=== PATIENT | female | born 1990 | race African-American/Black ===

== ENCOUNTER 2017-01-26 19:51 | Emergency (ER) | payer OTHER ==
[2017-01-26 20:13] VITALS: BP 92/61; BMI 21.9
[2017-01-26] MEDS ORDERED: ROCEPHIN VIAL 1 GM IM ONE (23:10)
[2017-01-26] MEDS ORDERED: MOTRIN TAB 800 MG PO STA (23:11)
--- NOTE | 2017-01-26 23:14 | DR.GENAD ---
HPI - PCP Primary Care Physician: NFD - Complaint/Symptoms Chief Complaint Doctors Comments: Patient complains of sore throat nasal congestion and problems loosing her voice for the past 24 hours. states she has had non productive cough but denies fever or chills. states she does not have a local doctor and her periods has been regular and she is on Depro Provera. States she has not had any thing for the pain. Chief Complaint:: " I have a sore throat and loosing my voice and a headache that just stated." - Nurses notes reviewed Nurses Notes Review: Yes - Source History Provided: Patient - Mode of Arrival Mode of Arrival: Ambulatory - Timing Onset of Chief Complaint: 01/26/17 Came on: Gradually - Duration Duration: Constant How lon Duration: Hours - Location Location: sore throat - Severity Severity: Moderate - Modifying Factors Worsens:: swallowing and coughing Improves:: nothing PMH - PMH Past Medical History: No Past Surgical History: No - Family History History of Family Medical Conditions: Yes Family Medical History: Diabetes Mellitus, Cancer, Coronary Artery Disease, Hypertension - Social History Alcohol Use: None Do you use any recreational Drugs:: No Lives With: Family Lives Where: Home - infectious screening Have you traveled outside the country in the last 6 months?: No ROS - Review of Systems Constitutional: No Symptoms Reported. negative: See HPI, Chills, Diaphoresis, Fever, Malaise, Weakness, Irritable, Fatigue, Loss of Appetite, Other Eyes: No Symptoms Reported ENTM: No Symptoms Reported, Nose Discharge, Nose Congestion, Throat Pain. negative: See HPI, Ear Pain, Ear Discharge, Pulling on Ears, Hearing Loss, Nose Pain, Epistaxis, Mouth Pain, Mouth Swelling, Loose Teeth, Drooling, Throat Swelling, Ear Foreign Body Respiratoy: No Symptoms Reported, Non-Productive Cough. negative: See HPI, Productive Cough, Moist Cough, Dry Cough, Hacking Cough, Barking Cough, Brassy Cough, Orthopnea, Short of Breath, Stridor, Wheezing, Hemoptysis, Other PE - Vital Signs Vitals: Temperature 99.3 F Pulse Rate 80 Respiratory Rate 18 Blood Pressure 92/61 O2 Sat by Pulse Oximetry 98 - General Limitations: No Limitations General Appearance: Alert, In No Apparent Distress - Head Head Exam: Normal Inspection, Atraumatic, Normocephalic - Eyes Eye exam: Normal Appearance, PERRL, EOMI. negative: Scleral Icterus, Conjunctival Injection, Nystagmus, Miosis, Mydrasis, Periorbital Swelling, Periorbital Tenderness, Other - ENT ENT Exam: Normal Exam, Normal Oropharynx, Normal External Ear Exam, Mucous Membranes Moist (nasal congestion with purulent nasal congestion bilaterally), TM's Normal Bilaterally External Ear Exam: Normal External Inspection TM/Canal Exam: Bilateral Normal Nose Exam: Normal Nose Exam, Sinus Tenderness (maxillary tenderness) Mouth Exam: Normal Inspection Throat Exam: Normal Inspection, Tonsillar Erythema - Neck Neck Exam: Normal Inspection, Full ROM, Trachea Midline - Chest Chest Inspection: Normal Inspection, Symmetric Chest Wall Rise - Respiratory Respiratory Exam: Normal Lung Sounds Bilat Respiratory Exam: Bilateral Clear to Auscultation - Cardiovascular Cardiovascular Exam: Regular Rate, Normal Rhythm, Normal Heart Sounds - Abdominal Exam Abdominal Exam: Normal Inspection, Normal Bowel Sounds, Soft Abdominal Tenderness: negative: RUQ, RLQ, LUQ, LLQ, Epigastrium, Suprapubic, Diffuse, Mild, Moderate, Severe, Other - Extremities Extremities Exam: Normal Inspection, Full ROM, Tenderness, Normal Capillary Refill - Back Back Exam: Normal Inspection, Full ROM. negative: Tenderness, (R) CVA Tenderness, (L) CVA Tenderness, Muscle Spasm, Paraspinal Tenderness, Vertebral Tenderness, Rashes, (R) Sciatic Notch Tenderness, (L) Sciatic Notch Tendern, (R ) Straight Leg Raise, (L) Straight Leg Raise, Other - Neurologic Neurological Exam: Alert, Oriented X3, CN II-XII Intact, Normal Gait, Reflexes Normal - Psychiatric Psychiatric Exam: Normal Affect, Normal Mood - Skin Skin Exam: Warm, Dry, Intact, Normal Color - Diagnosis Discharge Problem: Bronchitis Pharyngitis, acute Qualifiers: Pharyngitis/tonsillitis etiology: other specified organisms Qualified Code(s): J02.8 - Acute pharyngitis due to other specified organisms Sinusitis, acute Qualifiers: Sinusitis location: frontal - Discharge Plan Disposition: 01 HOME, SELF-CARE Condition: Stable Prescriptions: Amoxicillin & Pot Clavulanate [AUGMENTIN TAB 875 mg/125 mg *] 1 tab PO BID #20 tab Cetirizine HCl [Zyrtec Tab 10 mg] 10 mg PO DAILY #30 tab Fluticasone Nasal [place] [FLONASE NASAL SPRAY *] 2 sprays ENOSTRIL DAILY #1 each Ibuprofen [MOTRIN TAB 800 MG *] 800 mg PO BID PRN #60 tab PRN Reason: Pain/Inflammation - Follow ups/Referrals Follow ups/Referrals: NFD,None [Primary Care Provider] - 3 days - Instructions Instructions: Pharyngitis, Sinusitis, Adult, Acute Bronchitis
[2017-01-26] MEDS ORDERED: MOTRIN TAB 800 MG PO ONE (23:40)
[2017-01-26] MEDS ORDERED: ROCEPHIN VIAL 1 GM ONE (23:41)
[2017-01-26] MEDS ORDERED: CLARITIN ONE (23:41)
[2017-01-26] MEDS ORDERED: CLARITIN PO SCH (23:45)
== END 2017-01-27 00:06 | disposition home or self-care (01) ==
LOC: ER 19:51
DX: J40 Bronchitis, not specified as acute or chronic (principal); J01.80 Other acute sinusitis; J02.8 Acute pharyngitis due to other specified organisms
CPT/HCPCS: 96372; 99282; J0696